=== PATIENT | female | born 1965 | race Caucasian/White ===

== ENCOUNTER 2016-06-22 00:34 | Emergency (ER) | payer OTHER ==
[2016-06-22 00:55] VITALS: BP 141/75; PULSE 91; TEMP 98.3; BMI 35.6
--- NOTE | 2016-06-22 01:01 | PDOC ---
History of Present Illness - History of Present Illness Initial Comments: 06/22/16 01:10 The patient is a 50 year old female, with no significant past medical history, who presents to the emergency department with persistent cough for 3 weeks. The Patient reports seeing Dr. Pope on 06/12/15 and was started cough suppressant and cefuroxime. The patient states her symptoms persisted despite the medication and was started on prednisone regimen 2 days ago. The patient reports her cough is productive, worse with deep inspiration, and makes her back and chest hurt. She states she can not sleep at night due to the cough and pain. The patient had a Chest CT on 06/05/16 which showed ground-glass nodules in the right middle lobe and in the lingula. She denies chest pain, shortness of breath, headache and dizziness. She denies fever, chills, nausea, vomit, diarrhea and constipation. She denies dysuria, frequency, urgency and hematuria. Allergies: NKDA Social history: tobacco use (10 cigarettes daily) PCP - Dr. Love Pope <Laura Eduardo - Last Filed: 06/22/16 01:10> <Annie Shepherd - Last Filed: 06/22/16 23:59> - General Chief Complaint: Respiratory Stated Complaint: CHEST CONGESTION Time Seen by Provider: 06/22/16 00:55 Past History <Laura Eduardo - Last Filed: 06/22/16 01:10> - Past Medical History Other medical history: Denies - Immunization History Immunization Up to Date: No - Psycho/Social/Smoking Cessation Hx Anxiety: No Suicidal Ideation: No Smoking History: Current some day smoker Have you smoked in the past 12 months: No Number of Cigarettes Smoked Daily: 6 Information on smoking cessation initiated: No Hx Alcohol Use: Yes (Occasional) Drug/Substance Use Hx: No Substance Use Type: Alcohol <Annie Shepherd - Last Filed: 06/22/16 23:59> - Past Medical History Allergies/Adverse Reactions: Allergies Allergy/AdvReac Type Severity Reaction Status Date / Time No Known Allergies Allergy Verified 06/22/16 00:55 Home Medications: Ambulatory Orders Hydrocodone Bit/Homatrop Me-Br [Hydrocodone-Homatropine Syrup] 5 ml PO QID PRN # 1 bottle MDD 20ml 06/22/16 Review of Systems - Review of Systems Able to Perform ROS?: Yes Comments:: 06/22/16 01:10 CONSTITUTIONAL: Absent: fever, chills, diaphoresis, generalized weakness, malaise, loss of appetite HEENT: Absent: rhinorrhea, nasal congestion, throat pain, throat swelling, difficulty swallowing, mouth swelling, ear pain, eye pain, visual Changes CARDIOVASCULAR: Absent: chest pain, syncope, palpitations, irregular heart rate, lightheadedness , peripheral edema RESPIRATORY: (+) productive cough, Absent: shortness of breath, dyspnea with exertion, orthopnea, wheezing, stridor, hemoptysis GASTROINTESTINAL: Absent: abdominal pain, abdominal distension, nausea, vomiting, diarrhea, constipation, melena, hematochezia GENITOURINARY: Absent: dysuria, frequency, urgency, hesitancy, hematuria, flank pain, genital pain MUSCULOSKELETAL: Absent: myalgia, arthralgia, joint swelling SKIN: Absent: rash, itching, pallor HEMATOLOGIC/IMMUNOLOGIC: Absent: easy bleeding, easy bruising, lymphadenopathy, frequent infections ENDOCRINE: Absent: unexplained weight gain, unexplained weight loss, heat intolerance, cold intolerance NEUROLOGIC: Absent: headache, focal weakness or paresthesias, dizziness, unsteady gait, seizure, mental status changes, bladder or bowel incontinence PSYCHIATRIC: Absent: anxiety, depression, suicidal or homicidal ideation, hallucinations. <Laura Eduardo - Last Filed: 06/22/16 01:10> *Physical Exam - Vital Signs Last Vital Signs Temp Pulse Resp BP Pulse Ox 98.3 F 91 H 20 141/75 100 06/22/16 00:52 06/22/16 00:52 06/22/16 00:52 06/22/16 00:52 06/22/16 00:52 - Physical Exam Comments: 06/22/16 01:11 GENERAL: Well developed, well nourished. Awake and alert. No acute distress. HEENT: Normocephalic, atraumatic. PERRLA, EOMI. No conjunctival pallor. Sclera are non- icteric. Moist mucous membranes. Oropharynx is clear. NECK: Supple. Full ROM. No JVD. Carotid pulses 2+ and symmetric, without bruits. No thyromegaly. No lymphadenopathy. CARDIOVASCULAR: Regular rate and rhythm. No murmurs, rubs, or gallops. Distal pulses are 2+ and symmetric. PULMONARY: (+) wheezing, coughing on exam. No evidence of respiratory distress. No rales or rhonchi. ABDOMINAL: Soft. Non-tender. Non-distended. No rebound or guarding. No organomegaly. Normoactive bowel sounds. MUSCULOSKELETAL Normal range of motion at all joints. No bony deformities or tenderness. No CVA tenderness. EXTREMITIES: No cyanosis. No clubbing. No edema. No calf tenderness. SKIN: Warm and dry. Normal capillary refill. No rashes. No jaundice. NEUROLOGICAL: Alert, awake, appropriate. Cranial nerves 2-12 intact. Normoreflexic in the upper and lower extremities. Normal speech. Toes are down-going bilaterally. Gait is normal without ataxia. PSYCHIATRIC: Cooperative. Good eye contact. Appropriate mood and affect. <Laura Eduardo - Last Filed: 06/22/16 01:10> - Vital Signs Last Vital Signs Temp Pulse Resp BP Pulse Ox 98.3 F 91 H 20 141/75 100 06/22/16 00:52 06/22/16 00:52 06/22/16 00:52 06/22/16 00:52 06/22/16 00:52 <Annie Shepherd - Last Filed: 06/22/16 23:59> Medical Decision Making - Medical Decision Making 06/22/16 23:54 50 yo female has had cough for several week s and had been given antibiotics and cough meds but she p/w persisitent cough -pt improved w bronchdilators -no fever -she was not hypoxic 06/22/16 23:57 -she recently had a ct scan of her chest that showed nodules that required further evaluation. dr Love Miller is following her for this. she was scheduled for breast biospy after mammo showed lesion <Annie Shepherd - Last Filed: 06/22/16 23:59> *DC/Admit/Observation/Transfer - Attestations Scribe Attestion: 06/22/16 01:12 Documentation prepared by Laura Eduardo, acting as medical surgical tech for Annie Shepherd MD <Laura Eduardo - Last Filed: 06/22/16 01:10> <Annie Shepherd - Last Filed: 02/06/17 23:59> Diagnosis at time of Disposition: Cough - Discharge Dispostion Disposition: HOME Condition at time of disposition: Stable - Prescriptions Prescriptions: Hydrocodone Bit/Homatrop Me-Br [Hydrocodone-Homatropine Syrup] 5 ml PO QID PRN # 1 bottle MDD 20ml PRN Reason: Cough - Referrals Referrals: Love Pope MD [Primary Care Provider] - - Patient Instructions Printed Discharge Instructions: DI for Acute Bronchitis Additional Instructions: please followup with your physician
[2016-06-22] MEDS ORDERED: ALBUTEROL SO4 0.083% IH SOL 2.5 MG/3 ML VIAL.NEB. NEB ONE ×2 (01:05→01:14)
[2016-06-22] MEDS ORDERED: ALBUTEROL SO4 2.5/IPRATROPIUM 0.5 INH SOL 3 ML VIAL.NEB. NEB ONE ×2 (01:06→01:15)
[2016-06-22] MEDS ORDERED: guaiFENesin/CODEINE 10 ML UNIT-DOSE CUPS PO ONE (01:51)
[2016-06-22] MEDS ORDERED: guaiFENesin/CODEINE 5 ML UNIT-DOSE CUPS PO ONE (01:53)
== END 2016-06-22 02:18 | disposition home or self-care (01) ==
LOC: JER 00:34
PROC: 3E0F7GC Introduction of Other Therapeutic Substance into Respiratory Tract, Via Natural or Artificial Opening (ICD-10-PCS; principal; 2016-06-22)
DX: R05 Cough (principal); F17.210 Nicotine dependence, cigarettes, uncomplicated
CPT/HCPCS: 99281-25

== ENCOUNTER → 2016-06-22 | Day surgery (SDC) | payer OTHER ==
--- NOTE | 2016-06-23 15:17 | PATH ---
Surgical Pathology Report Patient Name: ROSAURA SONG [facility]. Rec. #: [id number] /Age/Gender: 1965 (Age: 50) / F Account: [id number] Location: [facility] RADIOLOGY U Taken: 06/22/2016 Received: 06/22/2016 Reported: 06/23/2016 Physicians: Celio Barnard M.D. Specimen(s) Received RIGHT BREAST CORE BIOPSY 11:00, 7-8 CM FN Clinical History Ultrasound findings: Probably benign r/o FA Final Diagnosis BREAST, RIGHT, 11:00, 7-8 CM FN, CORE BIOPSY: BENIGN BREAST TISSUE SHOWING STROMAL FIBROSIS AND FIBROADENOMATOID CHANGE. Electronically Signed Belen Jones M.D. Gross Description Received in formalin, labeled "right breast biopsy 11:00, 7-8 cmfn," are 5 miranda-yellow, cylindrical portions of fibroadipose tissue ranging from 0.6-2.0 cm. in length and averaging 0.2 cm. in diameter. The specimen is submitted in toto in one cassette. Time to formalin fixation: 2 minutes Total formalin fixation time: Approximately 8 hours. /06/22/201606/22/2016
== END | disposition home or self-care (01) ==
LOC: FRADUS-SUR 12:11
PROVIDERS: ATTEND Internal Medicine
PROC: 0HBT3ZX Excision of Right Breast, Percutaneous Approach, Diagnostic (ICD-10-PCS; principal; 2016-06-22)
DX: D24.1 Benign neoplasm of right breast (principal)
CPT/HCPCS: 19083; 87899; 88305-TC; A4648; G0206-TC

== ENCOUNTER 2016-06-27 10:00 | Emergency (ER) | payer OTHER ==
[2016-06-27 10:09] VITALS: TEMP 97.9; BMI 35.6
--- NOTE | 2016-06-27 10:25 | PDOC ---
History of Present Illness - History of Present Illness Initial Comments: 06/27/16 10:24 CHIEF COMPLAINT: cough, b/l knee pain HISTORY OF PRESENT ILLNESS: 50 yo F with recent hx of bronchitis presents to [facility] with persistent cough and bilaterally knee pain. Patient reports that she was diagnosed with bronchitis by her PMD about a month ago and has completed a round of cefoxime and is on the last of the taper of prednisone. Patient was recently seen in this ER for the cough and was given hydromorphone/ homatropine cough syrup. Patient complains that she woke up this morning with severe pain "inside the knees, I can't describe it but it is so painful I can barely walk." She denies any trauma or injury to her knees and reports that she took 4 Advil with no relief. She denies any fever, chills, nausea, vomiting , diarrhea, back pain, loss of sensation, numbness, or tingling to her lower extremities, loss of bowel or bladder function. No recent travel or sick contacts. PAST MEDICAL HISTORY: Denies past medical history FAMILY HISTORY: Denies SOCIAL HISTORY: Current smoker, 5 cigs daily. Denies alcohol, illicit drug use. SURGICAL HISTORY: Denies ALLERGIES: No known drug allergies REVIEW OF SYSTEMS General/Constitutional: Denies fever or chills. Denies weakness, weight change. HEENT: Denies change in vision. Denies ear pain or discharge. Denies sore throat. Cardiovascular: Denies chest pain or shortness of breath. Respiratory: Denies cough, wheezing, or hemoptysis. Gastrointestinal: Denies nausea, vomiting, diarrhea or constipation. Denies rectal bleeding. Genitourinary: Denies dysuria, frequency, or change in urination. Musculoskeletal: Bilateral knee pain. Denies swelling or redness. Denies neck or back pain Skin and breasts: Denies rash or easy bruising. Neurologic: Denies headache, vertigo, loss of consciousness, or loss of sensation. PHYSICAL EXAM General Appearance: Well-appearing, appropriately dressed. No apparent distress. HEENT: EOMI, PERRLA. No conjunctival pallor. No photophobia, scleral icterus. Neck: Supple. Trachea midline. No tenderness, rigidity, carotid bruit, stridor , lymphadenopathy, or thyromegaly. Respiratory/Chest: Lungs CTAB. Cardiovascular: RRR. S1, S2. No JVD, murmur, bradycardia, tachycardia. Vascular Pulses: Dorsalis-Pedis (R): 2+, Dorsalis-Pedis (L): 2+ Gastrointestinal/Abdominal: Normal bowel sounds. Abdomen soft, non-distended. No tenderness or rebound tenderness. No organomegaly, pulsatile mass, guarding , hernia, hepatomegaly, splenomegaly. Lymphatic: No adenopathy, tenderness. Musculoskeletal/Extremities: Full ROM to knees and lower extremities bilaterally, pulses equal. Negative Tila's sign. Negative anterior/posterior drawer test. No swelling, redness, edema. Normal inspection. FROM of all extremities, normal capillary refill. Pelvis Stable. No CVA tenderness. No tenderness to extremities, pedal edema, swelling, erythema or deformity. Integumentary: Appropriate color, dry, warm. No cyanosis, erythema, jaundice or rash Neurologic: respiratory equipment assistant II-XII intact. Fully oriented, alert. Appropriate mood/affect. Motor strength 5/5. No appreciable EOM palsy, facial droop or sensory deficit. 06/27/16 12:07 <Demetria Hurley - Last Filed: 06/27/16 12:07> <Truman Gupta - Last Filed: 06/27/16 12:17> - General Chief Complaint: Pain, Acute Stated Complaint: PAIN IN KNEES, COUGH Time Seen by Provider: 06/27/16 10:23 Past History - Past Medical History Other medical history: denies - Immunization History Immunization Up to Date: No - Psycho/Social/Smoking Cessation Hx Anxiety: No Suicidal Ideation: No Smoking History: Current some day smoker Have you smoked in the past 12 months: No Number of Cigarettes Smoked Daily: 6 Information on smoking cessation initiated: Yes Hx Alcohol Use: No Drug/Substance Use Hx: No Substance Use Type: Alcohol <Demetria Hurley - Last Filed: 06/27/16 12:07> <Truman Gupta - Last Filed: 06/27/16 12:17> - Past Medical History Allergies/Adverse Reactions: Allergies Allergy/AdvReac Type Severity Reaction Status Date / Time No Known Allergies Allergy Verified 06/27/16 10:03 Home Medications: Ambulatory Orders Oxycodone HCl/Acetaminophen [Percocet 5-325 mg Tablet] 1 - 2 tab PO Q6H #20 tablet MDD 6 tabs 06/27/16 *Physical Exam - Vital Signs Last Vital Signs Temp Pulse Resp BP Pulse Ox 97.9 F 78 18 122/60 100 06/27/16 10:03 06/27/16 10:03 06/27/16 10:03 06/27/16 10:03 06/27/16 10:03 <Demetria Hurley - Last Filed: 06/27/16 12:07> - Vital Signs Last Vital Signs Temp Pulse Resp BP Pulse Ox 97.9 F 78 18 122/60 100 06/27/16 10:03 06/27/16 10:03 06/27/16 10:03 06/27/16 10:03 06/27/16 10:03 <Truman Gupta - Last Filed: 06/27/16 12:17> Heart Score/ECG Review - ECG Impressions Comment:: 06/27/16 12:17 Twelve-lead EKG was performed and reviewed by me. There is normal sinus rhythm with a normal rate. Rate of 69 The axis is normal. The intervals are normal. There is normal R wave progression There are no ST or T wave abnormalities. Impression: Normal twelve-lead EKG <Truman Gupta - Last Filed: 06/27/16 12:17> ED Treatment Course - Medications Given in the ED: ED Medications Discontinued Medications Generic Name Dose Route Start Last Admin Trade Name Freq PRN Reason Stop Dose Admin Oxycodone/Acetaminophen 1 combo 06/27/16 10:40 06/27/16 11:01 Percocet 5/325 - PO 06/27/16 10:41 1 combo ONCE ONE Administration <Truman Gupta - Last Filed: 06/27/16 12:17> Medical Decision Making - Medical Decision Making 06/27/16 11:13 50 yo F with recent hx of bronchitis presents to fast track with persistent cough and bilaterally knee pain. -Chest x-ray -Percocet 06/27/16 11:29 Chest x-ray - lungs clear, weak inspiratory effort w/ large heart appreciated. Read by MD Herbert. Patient reassessed. Pain is much improved and patient states she can walk now. -Percocet 1-2 tabs q6h PRN pain Advised patient to take medication as prescribed and f/u with PMD. Advised patient to f/u with low voltage technician regarding previous CT results of lung nodules ; referral provided. Advised patient of signs and symptoms for return to ER; patient verbalized understanding and agrees to plan. <Demetria Hurley - Last Filed: 06/27/16 12:07> *DC/Admit/Observation/Transfer - Discharge Dispostion Admit: No <Demetria Hurley - Last Filed: 06/27/16 12:07> <Truman Gupta - Last Filed: 06/27/16 12:17> Diagnosis at time of Disposition: Cough, Viral syndrome - Prescriptions Prescriptions: Oxycodone HCl/Acetaminophen [Percocet 5-325 mg Tablet] 1 - 2 tab PO Q6H #20 tablet MDD 6 tabs - Referrals Referrals: Love Pope MD [Primary Care Provider] - Edy Cazares MD, MD [Staff Physician] - - Patient Instructions Printed Discharge Instructions: DI for Cough -- Adult Additional Instructions: Please take medication as prescribed and follow up with pulmonology as discussed. If you experience fever, chills, nausea, vomiting, diarrhea, blood in your sputum, persistent knee pain unrelieved by pain medication, or any new or worsening symptoms, please return to the ER.
[2016-06-27] MEDS ORDERED: OXYCODONE/APAP 5/325MG COMBO TABLET PO ONE (10:40)
[2016-06-27] MEDS ORDERED: OXYCODONE/APAP 5/325MG COMBO TABLET ONE (10:58)
--- NOTE | 2016-06-27 11:28 | PDOC ---
[id number]/60 100 06/27/16 10:03 06/27/16 10:03 06/27/16 10:03 06/27/16 10:03 06/27/16 10:03 ED Treatment Course - Medications Given in the ED: ED Medications Discontinued Medications Generic Name Dose Route Start Last Admin Trade Name Jayla PRN Reason Stop Dose Admin Oxycodone/Acetaminophen 1 combo 06/27/16 10:40 06/27/16 11:01 Percocet 5/325 - PO 06/27/16 10:41 1 combo ONCE ONE Administration Medical Decision Making - Medical Decision Making 06/27/16 11:23 50y F hx of recent dx of bronchitis and completed course of abx, presents with b /l atraumatic knee pain today. The patient denies any recent falls/injuries and is complaining of soreness ofher knees, worse when she is walking around. deneis any numbness/tingling, fevers, back pain or other joint pain. Pt took 800mg of motrin this morning with mild improvement. Pts exam is unremarkable with no focal tenderness, edema, warmth, erythema and has full ROM of his knee without any pain. Suspect post viral arthralgia. No swelling, sob, calf pain to suggest dvt, no history of trauma or focal tenderness to suggest fracture or bony injury, the fact that it is bilateral and with recent cough suspect viral etiology. will treat supportively with pain medication and rest. The patient was seen and evaluated in conjunction with ANGELIA Hurley under my direct supervision, ancillary studies were reviewed. I independently interviewed and evaluated the patient and I agree with the plan as outlined by ANGELIA Hurley *DC/Admit/Observation/Transfer Diagnosis at time of Disposition: Cough, Viral syndrome - Discharge Dispostion Disposition: HOME - Prescriptions Prescriptions: Oxycodone HCl/Acetaminophen [Percocet 5-325 mg Tablet] 1 - 2 tab PO Q6H #20 tablet MDD 6 tabs - Referrals Referrals: Love Pope MD [Primary Care Provider] - Edy Cazares MD, MD [Staff Physician] - - Patient Instructions Printed Discharge Instructions: DI for Cough -- Adult Additional Instructions: Please take medication as prescribed and follow up with pulmonology as discussed. If you experience fever, chills, nausea, vomiting, diarrhea, blood in your sputum, persistent knee pain unrelieved by pain medication, or any new or worsening symptoms, please return to the ER.
[2016-06-27 12:23] VITALS: BP 149/65; PULSE 52
--- NOTE | 2016-06-28 10:25 | EKG ---
Test Reason : Blood Pressure : / mmHG Vent. Rate : 069 BPM Atrial Rate : 069 BPM P-R Int : 150 ms QRS Dur : 092 ms QT Int : 374 ms P-R-T Axes : 011 020 034 degrees QTc Int : 400 ms NORMAL SINUS RHYTHM NON-SPECIFIC INTRA-VENTRICULAR CONDUCTION DELAY WHEN COMPARED WITH ECG OF 23-NOV-2010 12:54, NO SIGNIFICANT CHANGE WAS FOUND Confirmed by CECILY GONZALEZ MD ([id number]) on 06/28/2016 10:25:23 AM Referred By: Confirmed By:CECILY GONZALEZ MD
== END 2016-06-27 12:26 | disposition home or self-care (01) ==
LOC: JER 10:00
DX: B34.9 Viral infection, unspecified (principal); R05 Cough
CPT/HCPCS: 71020-TC; 93005; 93010; 99282-25

== ENCOUNTER 2018-01-12 04:57 | Inpatient (IN) | payer OTHER ==
[2018-01-11 09:04] VITALS: BMI 34.7
--- NOTE | 2018-01-12 07:02 | HP ---
History & Physical Update - Physical Physical: No Change - Assessment Assessment: No Change - Plan Plan: No Change
[2018-01-12] MEDS ORDERED: BUPIVACAINE HCL/PF 0.5% (5MG/ML) 10 ML VIAL ONE (07:07)
[2018-01-12] MEDS ORDERED: MIDAZOLAM HCL 2 MG/2 ML SINGLE DOSE VIAL ONE ×3 (07:09→07:45)
[2018-01-12] MEDS ORDERED: ONDANSETRON 4 MG/2 ML VIAL IVPUSH PRN ×2 (07:33→09:54)
[2018-01-12] MEDS ORDERED: ACETAMINOPHEN 1000 MG/100 ML VIAL (NON FORMULARY) IVPB ONE (07:33)
[2018-01-12] MEDS ORDERED: oxyCODONE HCL 5 MG TABLET PO PRN ×2 (07:33)
[2018-01-12] MEDS ORDERED: PROPOFOL 20 ML ONE ×2 (07:44→07:47)
[2018-01-12] MEDS ORDERED: ceFAZolin SODIUM 1 GM VIAL ONE ×2 (07:44→07:45)
[2018-01-12] MEDS ORDERED: SUCCINYLCHOLINE CHLORIDE 200 MG/10 ML VIAL ONE (07:45)
[2018-01-12] MEDS ORDERED: LIDOCAINE HCL/PF 2% SDV 5ML VIAL ONE (07:45)
[2018-01-12] MEDS ORDERED: DEXAMETHASONE SOD PHOSPHATE 4 MG/1 ML VIAL ONE (07:45)
[2018-01-12] MEDS ORDERED: LIDOCAINE HCL 2% JELLY (5 ML/TUBE) ONE (07:45)
[2018-01-12] MEDS ORDERED: SODIUM CHLORIDE 0.9% P/F 10 ML VIAL IJ ONE ×2 (07:45→08:38)
[2018-01-12] MEDS ORDERED: KETOROLAC TROMETHAMINE 30 MG/1 ML VIAL ONE (07:45)
[2018-01-12] MEDS ORDERED: ROCURONIUM BROMIDE 50 MG/5 ML VIAL ONE (07:46)
[2018-01-12] MEDS ORDERED: DESFLURANE GAS 240 ML BOTTLE IH ONE (07:54)
[2018-01-12] MEDS ORDERED: ceFAZolin SODIUM 1 GM VIAL IVPB ONE (08:15)
[2018-01-12] MEDS ORDERED: ACETAMINOPHEN INJECTION 100 ML IVPB ONE (08:30)
[2018-01-12] MEDS ORDERED: ePHEDrine SULFATE 50 MG/1 ML AMPULE ONE (08:38)
[2018-01-12] MEDS ORDERED: GLYCOPYRROLATE 0.2 MG/1 ML VIAL ONE (09:10)
[2018-01-12] MEDS ORDERED: NEOSTIGMINE METHYLSULFATE 0.5 MG/ML - 10 ML MDV ONE (09:10)
[2018-01-12] MEDS ORDERED: ELECTROLYTE-148 SOLN 1,000 ML IV SCH (10:00)
[2018-01-12] MEDS ORDERED: oxyCODONE HCL 5 MG TABLET ONE (15:36)
[2018-01-12] MEDS ORDERED: ACETAMINOPHEN 325 MG TABLET (FP) ONE (15:37)
[2018-01-12] MEDS: ACETAMINOPHEN 325 MG TABLET (FP) PO PRN (15:44)
[2018-01-12] MEDS: oxyCODONE HCL 5 MG TABLET PO PRN ×2 (15:44→23:41)
[2018-01-12] MEDS: LACTATED RINGERS SOLUTION 1,000 ML IV SCH ×2 (16:09→21:56)
[2018-01-12] MEDS ORDERED: ceFAZolin 2 GRAM PREMIX BAG IVPB SCH (19:00)
[2018-01-12] MEDS: IBUPROFEN 800 MG/8 ML IJ IVPB PRN (19:01)
[2018-01-12] MEDS: CEFAZOLIN 2 GM/D5W 2 GM/50 ML ML IVPB SCH (20:54)
[2018-01-13] MEDS ORDERED: SIMETHICONE 80 MG TAB.CHEW (FP) PO PRN (01:08)
[2018-01-13] MEDS: CEFAZOLIN 2 GM/D5W 2 GM/50 ML ML IVPB SCH ×3 (01:31→18:04)
[2018-01-13] MEDS: oxyCODONE HCL 5 MG TABLET PO PRN ×2 (05:50→13:32)
[2018-01-13 07:32] LABS: HEMOGLOBIN 7.3 GM/dL (10.7-15.3); MCHC 28.9 g/dl (32.0-36.0); MEAN CELL VOLUME 65.9 fl (80-96); PLATELET COUNT 332 K/MM3 (134-434); WHITE BLOOD COUNT 11.3 K/mm3 (4.0-10.0)
[2018-01-13] MEDS ORDERED: BISACODYL 5 MG TABLET.DR (FP) PO PRN (07:39)
[2018-01-13 08:24] LABS: MCH 19.1 pg (25.7-33.7)
[2018-01-13 08:28] LABS: CHLORIDE 108 mmol/L (98-107); POTASSIUM 4.4 mmol/L (3.5-5.1); SODIUM 140 mmol/L (136-145)
[2018-01-13] MEDS: IBUPROFEN 800 MG/8 ML IJ IVPB PRN (08:48)
--- NOTE | 2018-01-13 08:58 | PN ---
Progress Note (short form) - Note Progress Note: pod 1 s/p prosper, BSO has mild gas pain comfortable, no dizziness CBC, BMP 01/13/18 07:00 01/13/18 07:00 Last Vital Signs Temp Pulse Resp BP Pulse Ox 98 F 63 18 97/59 99 01/13/18 06:57 01/13/18 06:57 01/13/18 06:57 01/13/18 06:57 01/12/18 21:00 abdomen soft , no distension , no cva . BS present incision dry, clen no calf tenderness neal clear urine , adequate out put no vaginal bleeding impression pod 1 , afebrile previous hx of anemia preop HB 7.3 , asymptomatic , will repeat cbc in am , revaluate oob, ambulate advance diet
[2018-01-13 09:09] LABS: ANION GAP 8 MMOL/L (8-16); BLOOD UREA NITROGEN 7 mg/dL (7-18); CALCIUM 9.2 mg/dL (8.5-10.1); CO2 24 mmol/L (21-32); CREATININE 0.4 mg/dL (0.55-1.02); GLUCOSE,RANDOM 91 mg/dL (74-106)
[2018-01-13] MEDS ORDERED: PT OWN MED DRAWER 7, Y5N ONE (09:55)
[2018-01-13] MEDS: ENOXAPARIN NA (PORCINE) 40 MG/0.4 ML DISP.SYRIN SQ SCH (10:03)
[2018-01-13] MEDS: SIMETHICONE 80 MG TAB.CHEW (FP) PO PRN ×2 (13:33→22:32)
[2018-01-13] MEDS: ACETAMINOPHEN 325 MG TABLET (FP) PO PRN ×2 (13:33→22:28)
[2018-01-13] MEDS: LACTATED RINGERS SOLUTION 1,000 ML IV SCH (14:30)
[2018-01-13] MEDS: IBUPROFEN 600 MG TABLET (FP) PO PRN ×2 (14:51→22:28)
[2018-01-14] MEDS: CEFAZOLIN 2 GM/D5W 2 GM/50 ML ML IVPB SCH ×2 (01:43→09:53)
[2018-01-14 06:35] VITALS: TEMP 98.2
--- NOTE | 2018-01-14 08:06 | PN ---
Progress Note (short form) - Note Progress Note: Post op day#1.S/P FRENCH with BSO under GA with bilateral TAP block uneventful.Patient stable and c/o little pain for which she is on medication.No any anesthesia related problem.Patient Dc from the anesthesia care.
--- NOTE | 2018-01-14 08:28 | DS ---
Physical Exam-VECTOR CONTROL SPECIALIST Vital Signs: Vital Signs Temperature 98.2 F 01/14/18 06:00 Pulse Rate 59 L 01/14/18 06:00 Respiratory Rate 18 01/14/18 06:00 Blood Pressure 125/69 01/14/18 06:00 O2 Sat by Pulse Oximetry (%) 100 01/13/18 21:00 Constitutional: Yes: Well Nourished, No Distress, Calm Eyes: Yes: WNL, Conjunctiva Clear, EOM Intact HENT: Yes: WNL, Atraumatic, Normocephalic Neck: Yes: WNL, Supple, Trachea Midline Cardiovascular: Yes: WNL, Regular Rate and Rhythm Respiratory: Yes: WNL, Regular, CTA Bilaterally Gastrointestinal: Yes: WNL ...Rectal Exam: Yes: WNL Renal/: Yes: WNL Breast(s): Yes: WNL Musculoskeletal: Yes: WNL Extremities: Yes: WNL Edema: No Integumentary: Yes: WNL Wound/Incision: Yes: Clean/Dry, Well Approximated, Sutures Intact Neurological: Yes: WNL, Alert, Oriented ...Motor Strength: WNL Psychiatric: Yes: WNL, Alert, Oriented Labs: CBC, BMP 01/13/18 07:00 Discharge Summary Reason For Visit: FIBROIDS UTERUS/INTRA-ABDOMINAL & PELVIC SWELLING Procedures: Principal: abdominal hysterectomy, BSO Other Procedures: lysis of pelvic adhesions Hospital Course: non complicated Condition: Good - Instructions Diet, Activity, Other Instructions: regular diet, follow up office visit 2 weeks, if pain, fever, dizziness , call MD Referrals: Harjinder Perkins MD [Staff Physician] - - Home Medications Comprehensive Discharge Medication List: Ambulatory Orders Acetaminophen [Tylenol] 650 mg PO PRN PRN 01/11/18 Ibuprofen [Motrin -] 600 mg PO QID #28 tablet 01/13/18 Oxycodone HCl/Acetaminophen [Percocet 5-325 mg Tablet] 1 tab PO Q6H PRN #20 tablet MDD 4 01/13/18
[2018-01-14 08:59] LABS: BASO % 1.3 % (0-2.0); EOS % 2.3 % (0-4.5); HEMATOCRIT 24.8 % (32.4-45.2); HEMOGLOBIN 7.3 GM/dL (10.7-15.3); LYMPH % 34.9 % (8-40); MCHC 29.6 g/dl (32.0-36.0); MEAN CELL VOLUME 65.4 fl (80-96); MEAN PLT VOLUME 7.4 fl (7.5-11.1); NEUT % 54.5 % (42.8-82.8); PLATELET COUNT 335 K/MM3 (134-434); RBC 3.79 M/mm3 (3.60-5.2); WHITE BLOOD COUNT 6.5 K/mm3 (4.0-10.0)
[2018-01-14 09:09] LABS: MCH 19.3 pg (25.7-33.7)
[2018-01-14] MEDS: ENOXAPARIN NA (PORCINE) 40 MG/0.4 ML DISP.SYRIN SQ SCH (09:53)
[2018-01-14 11:11] LABS: ANISOCYTOSIS 2+; MACROCYTOSIS 0; PLATELET ESTIMATE NORMAL
[2018-01-14] MEDS: IBUPROFEN 600 MG TABLET (FP) PO PRN (12:03)
[2018-01-14 12:45] VITALS: BP 122/67; PULSE 69
--- NOTE | 2018-01-14 14:10 | PATH ---
Surgical Pathology Report Patient Name: ROSAURA SONG [facility]. Rec. #: [id number] /Age/Gender: 1965 (Age: 52) / F Account: [id number] Location: [facility] MED/SURG Taken: 01/12/2018 Received: 01/12/2018 Reported: 01/14/2018 Physicians: Harjinder Perkins M.D. Specimen(s) Received UTERUS, PORTION OF CERVIX, WITH B/L TUBES AND OVARIES Clinical History Fibroid uterus, intra-abdominal and pelvic swelling Final Diagnosis UTERUS, BILATERAL FALLOPIAN TUBES AND OVARIES, PORTION OF CERVIX, SUPRACERVICAL HYSTERECTOMY AND SALPINGO-OOPHORECTOMY: LEIOMYOMATA WITH FOCAL DEGENERATIVE CHANGE. ADENOMYOSIS. PROLIFERATIVE ENDOMETRIUM WITH FOCAL DISORDERED GLANDULAR CHANGE. LEFT TUBO-OVARIAN ADHESION. LEFT OVARY WITH ENDOMETRIOSIS. RIGHT FALLOPIAN TUBE WITH PARATUBAL CYSTS. RIGHT OVARY WITH CYSTIC FOLLICLES AND ENDOMETRIOSIS. SEPARATE ONE PORTION OF SMOOTH MUSCLE WITH ADENOMYOSIS. Electronically Signed Bertha Fairbanks M.D. Gross Description Received in formalin labeled "uterus, bilateral fallopian tubes and ovaries, portion of cervix," is a 568 g supracervically amputated uterus with bilateral attached fallopian tubes and ovaries. The specimen measures 11.5 cm from anterior to posterior, 9.5 cm from superior to inferior, and 9 cm from left to right. The serosa is miranda-pink and smooth. The endometrial cavity measures 7.5 cm from superior to inferior and 6 cm from cornu to cornu. There are multiple bulging submucosal nodules present, measuring up to 6.5 cm in greatest dimension. The endometrium is miranda-brown and measures up to 0.4 cm in thickness. Sectioning reveals abundant intramural nodules. The cut surface of the submucosal and intramural nodules is miranda and rubbery with whorled architecture. No areas of hemorrhage or necrosis are identified. One of the smaller intramural nodules displays focal calcifications. The remaining myometrium is miranda-pink and measures up to 6 centimeters in thickness. The left fimbriated fallopian tube measures 6.5 cm in length. The outer surface is miranda-brown with tubal ovarian adhesions. Sectioning reveals an unremarkable lumen. The left ovary measures 3.5 x 3.3 x 1.7 cm. The outer surface is miranda-brown with a focal defect. Sectioning reveals a 2.7 cm disrupted hemorrhagic cyst. The remaining ovarian parenchyma displays multiple smaller hemorrhagic cysts, measuring up to 0.5 cm in greatest dimension. The right fimbriated fallopian tube measures 6 cm in length. The outer surface is miranda cruz with tubal ovarian adhesions and multiple paratubal cysts attached to the fimbria. The paratubal cysts measure up to 1.2 cm in greatest dimension and contain clear serous fluid. Sectioning of the fallopian tube reveals an unremarkable lumen. The right ovary measures 2.7 x 2.2 x 1.8 cm. The outer surface is miranda-yellow, convoluted and smooth. Sectioning reveals a 1.2 cm in greatest dimension hemorrhagic cyst. The remaining ovarian parenchyma is miranda, smooth and firm. Also received in the same container is a 1.2 cm in greatest dimension nodule. The cut surface of the nodule is miranda and firm with foci of degeneration. Assembling Motor Builder sections are submitted in 25 cassettes as follows: 1-cervical stump margin of resection; 3-5-urzekmps endomyometrium; 8-5-dfpoetxku endomyometrium; 6-8-largest submucosal nodule; 9-64-ostrjxcapw submucosal nodules; 11-calcified intramural nodule, following decalcification; 21-68-zuwognhbdh intramural nodules; 14-left fallopian tube fimbria; 15-cross sections of left fallopian tube; 16-17-left ovary hemorrhagic cyst; 97-44-ukwgpsarqd left ovary; 20-21-right fallopian tube fimbria and paratubal cysts; 22-cross sections right fallopian tube; 23-right ovary hemorrhagic cyst; 24-additional right ovary; 25-separately received nodule. 01/13/2018 [facility]01/13/2018
--- NOTE | 2018-02-01 10:41 | OP ---
DATE OF OPERATION: 01/12/2018 PREOPERATIVE DIAGNOSES: Menometrorrhagia, pelvic pain, fibroid uterus, rule out endometriosis. POSTOPERATIVE DIAGNOSES: Menometrorrhagia, pelvic pain, endometriosis of bilateral ovaries, pelvic adhesions, and fibroid uterus. SURGEON: Harjinder Perkins MD BUSINESS OFFICE DIRECTOR: Tania Delaney MD ANESTHESIA: General. ESTIMATED BLOOD LOSS: 150 mL DESCRIPTION OF OPERATION: Patient was taken to the operating room. Under adequate general anesthesia in dorsal supine position, abdomen and perineum were prepped and draped. Pfannenstiel abdominal skin incision was made. Abdominal wall was cut layer by layer. Anterior peritoneum was exposed and incised. Upon entering the abdominal cavity, upper abdomen was checked, was normal. Bowels were packed away. There were bilateral tubo-ovarian adhesions with evidence of endometriosis. Both ovaries were adherent to the posterior cul-de-sac and to the pelvic sidewall and adherent to the pelvic sidewalls. Uterus was adherent posteriorly to cul-de-sac area and over the rectum area. Also, bladder had adhesions to the anterior uterine wall secondary to previous procedure. At this time, ovarian adhesions were lysed meticulously with Metzenbaum scissors and blunt dissection, and the ovaries were released from the posterior uterine wall and pelvic sidewalls. Hemostasis was established. There were 2 endometriotic, chocolate cysts in both ovaries, which were ruptured during the lysis of adhesions. At this time, infundibulopelvic ligament was identified bilaterally and then clamped with a Saba clamp and cauterized with bipolar LigaSure cautery and then cut, and the pedicles were tied with 0 Vicryl ties. Then, bladder was also adherent to the anterior abdominal wall which was from the previous . Dense adhesions were lysed with Metzenbaum scissors, and bladder was released from the anterior lower uterine segment and pushed down. Then, both round ligaments were identified bilaterally, clamped with the bipolar LigaSure cautery, cauterized and cut. The anterior leaf of the broad ligament was opened, and bladder was further pushed down. Then, uterine artery was identified bilaterally, clamped with Saba clamp, cut, and the clamp replaced with 0 Vicryl suture bilaterally. At this time, paracervical area was identified, clamped with Saba clamp, cut, and the clamp replaced with 0 Vicryl suture bilaterally. Then, anterior cervix was reached. At this time, the specimen was removed above the cervix, and the cervix was sutured with interrupted suture of 0 Vicryl. There was slight oozing at the left vaginal area which was clamped with a straight clamp and sutured with interrupted suture of 3-0 Vicryl, and hemostasis was established. At this time, pelvic cavity was several times irrigated. No active bleeding was seen. All the lap pads, sponge, and instrument counts were correct. Then, the peritoneum was closed with 0 Vicryl continuous suture. Muscles were brought together in interrupted suture of 0 Vicryl. Fascia was closed with 0 Vicryl continuous suture, subcuticular fat with interrupted suture of 0 Vicryl, and the skin was closed with 4-0 Biosyn subcuticular continuous suture. Patient tolerated the procedure well, left the OR in good condition. Celio [id number]
== END 2018-01-14 12:13 | disposition home or self-care (01) | DRG 743 ==
LOC: JSAMEDAYSX 04:57 → EDSTATUS 10:00 → J8W 15:54
PROVIDERS: ADMIT Obstetrics & Gynecology; ATTEND Obstetrics & Gynecology
PROC: 0UT20ZZ Resection of Bilateral Ovaries, Open Approach (ICD-10-PCS; 2018-01-12)
PROC: 0UB70ZZ Excision of Bilateral Fallopian Tubes, Open Approach (ICD-10-PCS; 2018-01-12)
PROC: 0UT90ZZ Resection of Uterus, Open Approach (ICD-10-PCS; principal; 2018-01-12 07:30)
DX: D25.9 Leiomyoma of uterus, unspecified (principal); N73.6 Female pelvic peritoneal adhesions (postinfective); N80.1 Endometriosis of ovary; N80.2 Endometriosis of fallopian tube
CPT/HCPCS: 36415; 80048; 84702; 85025; 85027; 86850; 86900; 86901; 88307-TC; 94760; J0131

== ENCOUNTER 2018-02-11 10:08 | Day surgery (SDC) | payer OTHER ==
[2018-02-10 15:45] VITALS: BMI 34.7
[2018-02-11] MEDS ORDERED: BUPIVACAINE HCL/PF 0.5% (5MG/ML) 10 ML VIAL ONE (11:02)
[2018-02-11] MEDS ORDERED: MIDAZOLAM HCL 2 MG/2 ML SINGLE DOSE VIAL ONE ×3 (11:06→11:37)
[2018-02-11] MEDS ORDERED: PROPOFOL 20 ML ONE (11:17)
[2018-02-11] MEDS ORDERED: ceFAZolin SODIUM 1 GM VIAL IVPB ONE (11:20)
[2018-02-11] MEDS ORDERED: LIDOCAINE HCL 1%, 10 MG/ML (50 mL VIAL) IJ ONE (11:29)
[2018-02-11] MEDS ORDERED: BUPIVACAINE HCL/PF (5 MG/ML) 30 ML VIAL IJ ONE (11:29)
[2018-02-11] MEDS ORDERED: ONDANSETRON 4 MG/2 ML VIAL IVPUSH PRN (12:09)
[2018-02-11] MEDS ORDERED: PROMETHAZINE HCL 25 MG/1 ML VIAL IVPB PRN (12:09)
[2018-02-11] MEDS ORDERED: oxyCODONE HCL 5 MG TABLET PO PRN (12:09)
--- NOTE | 2018-02-11 12:09 | SURG ---
Surgery Laundry Housekeeping Aide Note Laundry Housekeeping Aide: Julio West PA-C Date of Service: 02/11/18 Diagnosis: Left buttock Dermatofibroma Procedure: Excision of Left buttock dermatofibroma I was present for the entirety of the operative procedure. For further detail, please refer to operative report.
[2018-02-11] MEDS ORDERED: ACETAMINOPHEN 325 MG TABLET (FP) PO ONE (12:29)
[2018-02-11 12:33] VITALS: TEMP 97.8
[2018-02-11 14:59] VITALS: BP 140/80; PULSE 76
--- NOTE | 2018-02-11 15:45 | OP ---
Operative Note - Note: Operative Date: 02/11/18 Pre-Operative Diagnosis: Left buttock Dermatofibroma Operation: Resection Left buttock dermatofibroma Surgeon: Berny Barney Registered Dental Assistant: Julio West Anesthesiologist/NETWORK CABLER: Mitesh Causey Anesthesia: MAC Estimated Blood Loss (mls): 5 Operative Report Dictated: Yes
--- NOTE | 2018-02-14 17:08 | PATH ---
Surgical Pathology Report Patient Name: ROSAURA SONG [facility]. Rec. 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 Electronically Signed Dyana Almaguer M.D. Gross Description Received fresh labeled "skin lesion posterior thigh, left" is an ellipse of miranda skin measuring 5 x 2.5 cm, excised to a depth of 2 cm. There is a large, polypoid mass on the surface of the skin which measures 5 x 3 x 2 cm, 0.3 cm from closest radial margin, 1 cm from both tips, and > 2 cm from deep margin. The surface of the mass is cerebriform. Cut section shows abundant adipose tissue within its lobulated contours. Warehouse Insulation Worker sections are submitted in 5 cassettes. MLSZ/02/11/2018 sanemery/02/11/2018
--- NOTE | 2018-02-14 19:35 | OP ---
DATE OF OPERATION: 02/11/2018 PREOPERATIVE DIAGNOSIS: Left upper thigh/buttock skin lesion pending final pathology. POSTOPERATIVE DIAGNOSIS: Left upper thigh/buttock skin lesion pending final pathology. PROCEDURE: Wide excision, left upper thigh/left buttock skin lesion. SURGEON: Berny Barney MD ANALYST MARKET INTELLIGENCE: Julio West PA-C ANESTHESIA: Local with IV sedation. OPERATIVE FINDINGS: There was a broad-based, pedunculated skin lesion, possibly clinically consistent with a fibroadenoma in the left inferior buttock crease. The base of the lesion was 6 cm in greatest dimension, and the rest of the findings were unremarkable. DESCRIPTION OF PROCEDURE: The patient was placed on the operating table in the prone position, and the area over the lesion was prepped with ChloraPrep and draped in sterile fashion. A transverse incision was mapped out to include adequate margins of the lesion and the area infiltrated with 1% Xylocaine and 0.5% Marcaine in equal concentration. Incision was made with a scalpel and taken down through skin and subcutaneous tissue. The mass was excised and sent for pathological examination. Hemostasis was secured with electrocautery and the wound copiously irrigated with sterile saline and closed in layers with interrupted 3-0 Vicryl for the deep dermis and 3-0 nylon vertical mattress sutures to reapproximate the skin edges. Dry sterile dressings were placed and the procedure terminated at this point and the patient transferred to the postanesthesia care unit in stable condition, awake, and alert. ESTIMATED BLOOD LOSS: 5 mL REPLACEMENTS: Crystalloid. DRAINS: None. SPECIMEN: Skin lesion to pathology. I, Berny Barney, was physically present in the operating room from the time the patient was placed on the operating table until she was transferred to the postanesthesia care unit in my accompaniment. MD EMMA Helton/[id number]
== END 2018-02-11 15:02 | disposition home or self-care (01) ==
LOC: JASU-SURG 10:08
PROVIDERS: ATTEND Surgery
PROC: 0HB8XZZ Excision of Buttock Skin, External Approach (ICD-10-PCS; principal; 2018-02-11 11:00)
DX: L98.9 Disorder of the skin and subcutaneous tissue, unspecified (principal)
CPT/HCPCS: 88305-TC; 94760

== ENCOUNTER 2022-10-03 05:34 | Emergency (ER) | payer OTHER ==
[2022-10-03 05:45] VITALS: BP 108/78; PULSE 71; RESP 16; TEMP 98.3; BMI 35.6
[2022-10-03 06:52] LABS: BASO % 0.5 % (0-2.0); EOS % 2.4 % (0-4.5); HEMATOCRIT 43.7 % (32.4-45.2); HEMOGLOBIN 15.5 GM/dL (10.7-15.3); MCHC 35.3 g/dl (32.0-36.0); MEAN CELL VOLUME 90.5 fl (80-96); MONO % 6.8 % (3.8-10.2); NEUT % 71.3 % (42.8-82.8); PH,URINE 5.5 (5.0-8.0); PLATELET COUNT 259 10^3/uL (134-434); RBC 4.83 M/mm3 (3.60-5.2); RDW 13.4 % (11.6-15.6); URINE APPEARANCE CLEAR; URINE BILIRUBIN NEGATIVE (NEGATIVE); URINE COLOR YELLOW; URINE GLUCOSE (UA) NEGATIVE (NEGATIVE); URINE KETONE NEGATIVE (NEGATIVE); URINE LEUK ESTERASE NEGATIVE (NEGATIVE); URINE NITRITE NEGATIVE (NEGATIVE); URINE PROTEIN NEGATIVE (NEGATIVE); URINE UROBILINOGEN 0.2 mg/dL (0.2-1.0); WHITE BLOOD COUNT 9.4 K/mm3 (4.0-10.0)
[2022-10-03 07:12] LABS: POTASSIUM 4.5 mmol/L (3.5-5.1)
[2022-10-03 07:14] LABS: CALCIUM 10.3 mg/dL (8.5-10.1)
[2022-10-03 07:15] LABS: ALBUMIN 3.9 g/dl (3.4-5.0); BLOOD UREA NITROGEN 13.6 mg/dL (7-18)
[2022-10-03 07:18] LABS: CREATININE 0.5 mg/dL (0.55-1.3)
[2022-10-03 07:19] LABS: TOT PROT 7.1 g/dl (6.4-8.2)
[2022-10-03 07:20] LABS: BILIRUBIN,TOTAL 0.4 mg/dL (0.2-1)
[2022-10-03] MEDS ORDERED: LACTATED RINGERS SOLUTION 1000 ML INFUS.BAG IV ONE (08:41)
[2022-10-03] MEDS ORDERED: ACETAMINOPHEN 1000 MG/100 ML BAG IVPB ONE (09:01)
[2022-10-03] MEDS ORDERED: ACETAMINOPHEN INJECTION 100 ML IVPB ONE (09:10)
== END 2022-10-03 11:30 | disposition home or self-care (01) ==
LOC: JER 05:34
DX: R10.31 Right lower quadrant pain (principal); M54.9 Dorsalgia, unspecified; R10.32 Left lower quadrant pain; R15.2 Fecal urgency
CPT/HCPCS: 36415; 74177-TC; 80053; 81003; 82272; 84703; 85025; 86850; 86900; 86901; 87086; 99285-25; Q9967

== ENCOUNTER 2022-11-11 04:26 | Day surgery (SDC) | payer OTHER ==
[2022-11-09 16:26] VITALS: BMI 35.6
[2022-11-11 09:30] VITALS: TEMP 98
[2022-11-11 09:54] VITALS: RESP 99
[2022-11-11 09:55] VITALS: BP 133/89; PULSE 71
== END 2022-11-11 10:15 | disposition home or self-care (01) ==
LOC: JASU-ENDO 04:26
PROVIDERS: ATTEND Internal Medicine Gastroenterology
PROC: 0DBL8ZX Excision of Transverse Colon, Via Natural or Artificial Opening Endoscopic, Diagnostic (ICD-10-PCS; 2022-11-11)
PROC: 0DBP8ZX Excision of Rectum, Via Natural or Artificial Opening Endoscopic, Diagnostic (ICD-10-PCS; 2022-11-11)
PROC: 0DBN8ZX Excision of Sigmoid Colon, Via Natural or Artificial Opening Endoscopic, Diagnostic (ICD-10-PCS; principal; 2022-11-11 09:00)
DX: D12.3 Benign neoplasm of transverse colon (principal); K63.5 Polyp of colon; K62.1 Rectal polyp; K57.30 Diverticulosis of large intestine without perforation or abscess without bleeding; K64.8 Other hemorrhoids
CPT/HCPCS: 88305-TC

== ENCOUNTER → 2025-01-17 | Day surgery (SDC) | payer BC, OTHER | END | disposition home or self-care (01) | LOC: JRADUS-SUR 10:20 | PROVIDERS: ATTEND Internal Medicine | PROC: 0H9U3ZX Drainage of Left Breast, Percutaneous Approach, Diagnostic (ICD-10-PCS; principal; 2025-01-17) | DX: N60.12 Diffuse cystic mastopathy of left breast (principal) | CPT/HCPCS: 19083; A4648; 76942-TC; 77065-TC; 87899; 88305-TC ==